=== PATIENT | female | born 1950 | race Caucasian/White ===

== ENCOUNTER → 2016-11-09 | Outpatient (CLI) | payer BC ==
--- NOTE | 2016-11-09 23:46 | MR ---
EXAMINATION TYPE: MR shoulder RT wo con DATE OF EXAM: 11/09/2016 COMPARISON: NONE HISTORY: Rt shoulder pain x 6 mos, no trauma TECHNIQUE: Multiplanar, multisequence imaging of the right shoulder is performed without contrast. FINDINGS: Biceps tendon is intact. Subscapularis tendon is intact. The glenoid aj appear normal. There is no evidence of a fracture. There is spurring at the AC joint and mild subacromial impingement. There is some thickening and increased signal in the supraspinatus tendon near the greater tuberosity of the humerus. There is a vertical defect on the anterior aspect of the tendon seen on the sagittal T2 imag e 12. There is no retraction. I see no fracture. There are small degenerative cysts in the greater tu berosity of the humerus. IMPRESSION: There is evidence of a full-thickness tear of the anterior aspect of the supraspinatus tendon. Minima l subacromial impingement. Small degenerative cysts in the greater tuberosity of the humerus. There i s some hypertrophic degenerative change in the inferior glenoid labrum on the coronal images.
== END | disposition home or self-care (01) ==
LOC: RADMRIMAIN 16:38
PROVIDERS: ATTEND Family Medicine
DX: M75.121 Complete rotator cuff tear or rupture of right shoulder, not specified as traumatic (principal); M19.011 Primary osteoarthritis, right shoulder; M25.811 Other specified joint disorders, right shoulder